=== PATIENT | female | born 1970 | race Caucasian/White ===

== ENCOUNTER 2018-11-16 05:58 | Emergency (ER) | payer OTHER ==
[~2018-11-16] VITALS: Ht 157.5 cm; Wt 61.2 kg
[2018-11-16] MEDS ORDERED: methylPREDNISolone SOD SUCC 125 MG/2 ML VL IV ONE (06:30)
[2018-11-16] MEDS ORDERED: IPRATROPIUM BROM 0.5 MG/2.5ML INH SOL HHN ONE (06:30)
[2018-11-16] MEDS ORDERED: ALBUTEROL SULF 2.5 MG/0.5ML(0.5%) NEB SOLN HHN ONE (06:30)
[2018-11-16 06:53] LABS: Basophils # (auto) 0.1 uL; Monocytes # (auto) 0.6 uL; Neutrophils # (auto) 4.2 uL
[2018-11-16 06:56] LABS: Basophils % (auto) 0.8 % (0.0-2.0); Eosinophils # (auto) 1.5 uL; Hematocrit 44.8 % (36.0-46.0); Hemoglobin 14.8 g/dL (12.2-16.2); Lymphocytes # (auto) 3.3 uL; Lymphocytes % (auto) 34.2 % (10.0-50.0); Mean Corpuscular Hgb Conc. 33.1 g/dL (32.0-36.0); Mean Corpuscular Volume 105.9 fL (80.0-100.0); Neutrophils % (auto) 43.8 % (37.0-80.0); Nucleated Red Blood Cells % 0.2 %; Platelet Count (auto) 407 10^3/uL (140-450); Red Blood Cells 4.23 10^6/uL (4.0-5.20); Red Cell Distribution Width 15.1 % (11.8-14.3); White Blood Cell 9.5 10^3/uL (4.4-10.8)
[2018-11-16 07:04] LABS: Albumin 3.3 g/dL (3.4-5.0); Calcium 8.1 mg/dL (8.5-10.1); Potassium 4.4 mmol/L (3.5-5.1)
[2018-11-16 07:07] LABS: Bilirubin, Total 0.2 mg/dL (0.2-1.0); Total Protein 7.2 g/dL (6.4-8.2)
[2018-11-16 07:11] LABS: Eosinophils % (auto) 15.2 % (0.0-7.0)
[2018-11-16 13:22] VITALS: BP 123/82
== END 2018-11-16 13:38 | disposition short-term general hospital (02) ==
LOC: EDBD 05:58 → ER 06:02
DX: J45.909 Unspecified asthma, uncomplicated (principal); F17.210 Nicotine dependence, cigarettes, uncomplicated
CPT/HCPCS: 36415; 71045; 80053; 85025; 93005; 94640; 94761; 96374; 99285; J2930; J7611; J7644; 94644